=== PATIENT | male | born 1980 | race Caucasian/White ===

== ENCOUNTER 2016-05-14 13:34 | Emergency (ER) | payer OTHER ==
[~2016-05-14] VITALS: Ht 182.9 cm; Wt 75.0 kg
[2016-05-14 13:43] VITALS: BP 129/72; PULSE 104; RESP 16; TEMP 98.2; O2SAT 97
--- NOTE | 2016-05-14 13:49 | PD ---
HPI Chief Complaint: Psychiatric Symptoms Time Seen by Provider: 13:45 Travel History International Travel<30 days: No Contact w/Intl Traveler<30days: No Traveled to known affect area: No History of Present Illness HPI 36-year-old male brought in by [employer] under the Ruiz act for reports of suicidal ideation. Patient states history of OxyContin abuse which she has been out of for the last 3 days. Patient admits to increased suicidal ideation and depression. He takes no other medications. He states generalized myalgias, but no other constitutional symptoms. He has no known drug allergies. [facility] Past Medical History Diminished Hearing: No Social History Alcohol Use: No Tobacco Use: No Substance Use: Yes Allergies-Medications (Allergen,Severity, Reaction): Coded Allergies: No Known Allergies (Unverified , 12/15/13) Reported Meds & Prescriptions Reported Meds & Active Scripts Active No Active Prescriptions or Reported Medications Review of Systems Except as stated in HPI: all other systems reviewed are Neg General / Constitutional: No: Fever Eyes: No: Visual changes HENT: No: Headaches Cardiovascular: No: Chest Pain or Discomfort Respiratory: No: Shortness of Breath Gastrointestinal: No: Abdominal Pain Genitourinary: No: Dysuria Musculoskeletal: Positive: Myalgias, No: Pain Skin: No Rash Neurologic: No: Weakness Psychiatric: No: Depression Endocrine: No: Polydipsia Hematologic/Lymphatic: No: Easy Bruising Physical Exam Narrative GENERAL: Patient appears in no acute distress. SKIN: Warm and dry. Normal color. Normal turgor. No signs of infection. HEAD: Atraumatic. Normocephalic. EYES: Pupils equal and round. No scleral icterus. No injection or drainage. ENT: No nasal bleeding or discharge. Mucous membranes pink and moist. NECK: Trachea midline. No JVD. CARDIOVASCULAR: Regular rate and rhythm. RESPIRATORY: No accessory muscle use. Clear to auscultation. Breath sounds equal bilaterally. GASTROINTESTINAL: Abdomen soft, non-tender, nondistended. Hepatic and splenic margins not palpable. MUSCULOSKELETAL: Extremities without clubbing, cyanosis, or edema. No obvious deformities. NEUROLOGICAL: Awake and alert. No obvious cranial nerve deficits. Motor grossly within normal limits. Five out of 5 muscle strength in the arms and legs. Normal speech. PSYCHIATRIC: Appropriate mood and affect; insight and judgment normal. Patient admits to suicidal ideation. No specific plan is noted. Data Data Last Documented VS Vital Signs Date Time Temp Pulse Resp B/P Pulse Ox O2 Delivery O2 Flow Rate FiO2 05/14/16 13:43 98.2 104 16 129/72 97 Orders Complete Blood Count With Diff (05/14/16 13:45) Comprehensive Metabolic Panel (05/14/16 13:45) Drug Screen, Random Urine (05/14/16 13:45) Alcohol (Ethanol) (05/14/16 13:45) Psych Screen (05/14/16 13:45) Diet Regular Basic (05/14/16 Lunch) MDM Medical Decision Making Medical Screen Exam Complete: Yes Emergency Medical Condition: Yes Differential Diagnosis Polysubstance abuse. Withdrawal from opiates. Suicidal ideation. Ruiz act. Narrative Course Patient is medically stable at time of exam. Psychiatric labs ordered per protocol. Patient is medically stable for psychiatric evaluation. Diagnosis Primary Impression: Medical clearance for psychiatric admission Additional Impression: Suicidal ideation Scripts No Active Prescriptions or Reported Meds Condition: Stable Marco Zaldivar May 14, 2016 13:49
[2016-05-14 15:03] LABS: AUTOMATED NEUTROPHIL # 8.7 TH/MM3 (1.8-7.7); BASOPHIL % 0.3 % (0.0-2.0); EOSINOPHIL % 0.3 % (0.0-4.0); HEMATOCRIT 44.3 % (39.0-51.0); HEMO FLAGS DIFF FINAL; LYMPH % 10.2 % (9.0-44.0); MEAN CELL VOLUME 94.1 FL (80.0-100.0); MEAN CORPUSCULAR HEMOGLOBIN 32.2 PG (27.0-34.0); MEAN CORPUSCULAR HGB CONC 34.2 % (32.0-36.0); MONO % 4.4 % (0.0-8.0); NEUT % 84.8 % (16.0-70.0); PLATELET COUNT 235 TH/MM3 (150-450); RED BLOOD COUNT 4.71 MIL/MM3 (4.50-5.90); RED CELL DISTRIBUTION WIDTH 12.4 % (11.6-17.2); WHITE BLOOD COUNT 10.2 TH/MM3 (4.0-11.0)
[2016-05-14 15:15] LABS: ALT (GPT) 17 U/L (12-78); ANION GAP 6 MEQ/L (5-15); AST (GOT) 13 U/L (15-37); BICARBONATE 27.9 MEQ/L (21.0-32.0); BLOOD UREA NITROGEN 19 MG/DL (7-18); CHLORIDE 107 MEQ/L (98-107); GLOMERULAR FILTRATION RATE 94 ML/MIN (>89); POTASSIUM 3.9 MEQ/L (3.5-5.1); SODIUM (NA) 141 MEQ/L (136-145)
[2016-05-14 15:17] LABS: ALKALINE PHOSPHATASE 59 U/L (45-117); TOTAL BILIRUBIN ADULT 1.9 MG/DL (0.2-1.0)
--- NOTE | 2016-05-14 18:19 | PD ---
History of Present Illness Chief Complaint: Psychiatric Symptoms Time Seen by Provider: 16:15 Travel History International Travel<30 Days: No Contact w/Intl Traveler<30days: No Known affected area: No Legal Status Legal Status: Ruiz Act Ruiz Act Signed By: Steve Rojas History of Present Illness: History of Present Illness 36-year-old male with no psychiatric history and hx of substance use disorder who comes under a [place] Act by [employer]. As per the report; " addicted to OxyContin , hasn't had any in 3 days. Left parents house then sent suicidal threats to mother's cell phone. As per EMR no previous contact with [facility] psychiatric department. Patient presented in an agitated state demanding to receive OxycContin. he was uncooperative with staff as they attempted to complete psychiatric screening. Patient is alert, oriented, verbal. Speech is clear. He was initially agitated but regained behavioral control. He was upset with the quality of the pillow, the mattress, the fact that he has not eaten in 2 days. He was offered something to drink which he accepted but declined any other nutrition. There is no psychosis and no jan. Patient denies suicidal or homicidal ideation. He is angry and states " I am not crazy and i don't know w why the police brought me here. he denies having said that he was going to kill himself. He reports a long history of opiate abuse with last having used 3 days ago. He is not prescribed this medication but is obtaining it from the street. He informs me that he " was cut off from getting it". He reports that he has been clean for approximately 1 year and has been o a rehabilitation facility in [place]. He is seeking admission to another detox and is not interested in [facility] at this time. Patient also states that his insurance had informed him he needed to come here in order to be referred to a detox facility. PFSH Past Medical History Diminished Hearing: No Psychiatric History Psychiatric History Hx Psychiatric Treatment: Deneis any History of Inpatient Treatment: No Guns or firearms in home: No Social History Single male Hx Alcohol Use: No Hx Tobacco Use: No Hx Substance Use: Yes Substance Use Type: Synth Opiates-Pain Pills Hx of Substance Use Treatment: Yes (Several admissions to rehabilitation facilities. ) Family Psychiatric History None reported Allergies-Medications (Allergen,Severity, Reaction): Coded Allergies: No Known Allergies (Unverified , 12/15/13) Reported Meds & Prescriptions Reported Meds & Active Scripts Active No Active Prescriptions or Reported Medications Review of Systems Constitutional: COMPLAINS OF: Weight loss Endocrine: DENIES: Heat/cold intolerance, Polydipsia, Polyuria, Polyphagia Eyes: DENIES: Blurred vision, Diplopia, Eye inflammation, Eye pain, Vision loss , Photosensitivity, Double Vision Ears, nose, mouth, throat: COMPLAINS OF: Running Nose Respiratory: DENIES: Apneas, Cough, Snoring, Wheezing, Hemoptysis, Sputum production, Shortness of breath Cardiovascular: DENIES: Chest pain, Palpitations, Syncope, Dyspnea on Exertion , PND, Lower Extremity Edema, Orthopnea, Claudication Gastrointestinal: COMPLAINS OF: Abdominal pain Genitourinary: DENIES: Sexual dysfunction, Urinary frequency, Urinary incontinence, Urgency, Hematuria, Dysuria, Nocturia, Penile Discharge, Testicular Pain, Testicular Swelling Musculoskeletal: COMPLAINS OF: Muscle aches Integumentary: DENIES: Abnormal pigmentation, Nail changes, Pruritus, Rash Hematologic/lymphatic: DENIES: Bruising, Lymphadenopathy Immunologic/allergic: DENIES: Eczema, Urticaria Neurologic: DENIES: Abnormal gait, Headache, Localized weakness, Paresthesias, Seizures, Speech Problems, Tremor, Poor Balance Psychiatric: DENIES: Anxiety, Confusion, Mood changes, Depression, Hallucinations, Agitation, Suicidal Ideation, Homicidal Ideation, Delusions Exam Alert: Yes Fenton: Person (ox4) Mood: Angry Affect: Euthymic Speech: Clear, Logical Eye Contact: Normal Memory Intact: Comment (not formally tetsted) Hallucinations: Other (negative) Delusions: No Suicidal: Ideation (deneis any) Homicidal: Ideation (denies any ) Insight/Judgement Poor. Poor MDM Medical Decision Making Medical Record Reviewed: Yes Assessment/Plan 36 year old male with history of opiate abuse under a BA for alleged suicidal statements. Patient currently denies any suicidal or homicidal ideation , intent or plan and is requesting information re area detox centers. he accepts information on [facility], [facility] as well as the [facility]. He is requesting to be discharged at this time and does not meet BA criteria. Patietn calm at time of discharge and apologizes to staff for earlier verbal outburst. Orders Complete Blood Count With Diff (05/14/16 13:45) Comprehensive Metabolic Panel (05/14/16 13:45) Drug Screen, Random Urine (05/14/16 13:45) Alcohol (Ethanol) (05/14/16 13:45) Psych Screen (05/14/16 13:45) Diet Regular Basic (05/14/16 Lunch) Results Vital Signs Date Time Temp Pulse Resp B/P Pulse Ox O2 Delivery O2 Flow Rate FiO2 05/14/16 13:43 98.2 104 16 129/72 97 Laboratory Tests Test 05/14/16 14:45 White Blood Count 10.2 Red Blood Count 4.71 Hemoglobin 15.2 Hematocrit 44.3 Mean Corpuscular Volume 94.1 Mean Corpuscular Hemoglobin 32.2 Mean Corpuscular Hemoglobin 34.2 Concent Red Cell Distribution Width 12.4 Platelet Count 235 Mean Platelet Volume 8.7 Neutrophils (%) (Auto) 84.8 Lymphocytes (%) (Auto) 10.2 Monocytes (%) (Auto) 4.4 Eosinophils (%) (Auto) 0.3 Basophils (%) (Auto) 0.3 Neutrophils # (Auto) 8.7 Lymphocytes # (Auto) 1.0 Monocytes # (Auto) 0.5 Eosinophils # (Auto) 0.0 Basophils # (Auto) 0.0 CBC Comment DIFF FINAL Differential Comment Sodium Level 141 Potassium Level 3.9 Chloride Level 107 Carbon Dioxide Level 27.9 Anion Gap 6 Blood Urea Nitrogen 19 Creatinine 0.91 Estimat Glomerular Filtration 94 Rate Random Glucose 91 Calcium Level 9.3 Total Bilirubin 1.9 Aspartate Amino Transf 13 (AST/SGOT) Alanine Aminotransferase 17 (ALT/SGPT) Alkaline Phosphatase 59 Total Protein 7.7 Albumin 4.4 Ethyl Alcohol Level LESS THAN 3 Diagnosis Primary Impression: Opiate dependence Additional Impression: Medical clearance for psychiatric admission Ruled Out: Suicidal ideation Psychiatrically Cleared: Yes Referrals: [facility] (Out patient) call for appointment Departure Forms: Tests/Procedures Patient Instructions: General Instructions, Polysubstance Abuse (ED) Med/ Other Pt Specific Info: No Meds Exist/No RX given Prescriptions No Active Prescriptions or Reported Meds Disposition: 01 DISCHARGE HOME Condition: Stable Problem Qualifiers Chen Cortez May 14, 2016 18:19
== END 2016-05-14 17:01 | disposition home or self-care (01) ==
LOC: NEPJ 13:34
DX: F11.20 Opioid dependence, uncomplicated (principal)
CPT/HCPCS: 80053; 80320; 85025; 99283